=== PATIENT | female | born 1960 | race Caucasian/White ===

== ENCOUNTER 2017-01-20 05:10 | Day surgery (SDC) ==
[2017-01-20] MEDS ORDERED: LR 1,000 ML ONE (05:27)
[2017-01-20] MEDS ORDERED: PEPCID ONE (05:27)
[2017-01-20] MEDS ORDERED: REGLAN ONE (05:27)
[2017-01-20] MEDS ORDERED: KEFZOL 1 GM/D5W 50 ML ONE (05:27)
[2017-01-20] MEDS ORDERED: HEPARIN ONE (06:34)
[2017-01-20] MEDS ORDERED: XYLOCAINE 1%/EPI 1:100,000 ONE (06:34)
[2017-01-20] MEDS ORDERED: MARCAINE 0.25% PF/EPI 1:200,000 ONE (06:34)
[2017-01-20] MEDS ORDERED: NS 250 ML ONE (06:34)
[2017-01-20] MEDS: PHENERGAN ONE ×2 (08:04→08:17)
[2017-01-20] MEDS ORDERED: DIPRIVAN 1% ONE (08:05)
[2017-01-20] MEDS ORDERED: VERSED ONE (08:05)
[2017-01-20] MEDS ORDERED: DECADRON ONE (08:46)
[2017-01-20] MEDS ORDERED: ZOFRAN ONE (08:46)
[2017-01-20] MEDS ORDERED: XYLOCAINE-MPF 2% ONE (08:46)
--- NOTE | 2017-01-20 08:51 | Diag Imaging Result Document ---
PROCEDURE NAME: CHEST-PORTABLE - 01/20/2017 AP PORTABLE CHEST DATED 01/20/2017 AT 0820 HOURS: FINDINGS: There is a Port-A-Cath on the right with its tip in the superior vena cava. There is no evidence of acute cardiac or pulmonary disease and compared to 12/23/2016, otherwise there has been no significant change. IMPRESSION: Port-A-Cath on the right with its tip in the superior vena cava. No acute abnormality.
--- NOTE | 2017-01-20 08:59 | OPERATIVE NOTE ---
PROCEDURE DATE: 01/20/2017 PREOPERATIVE DIAGNOSIS: Breast cancer. POSTOPERATIVE DIAGNOSIS: Breast cancer. PROCEDURE PERFORMED: Insertion of Port-A-Cath with fluoroscopic and ultrasound guidance. SURGEON: Chris Arthur MD ANESTHESIA: General LMA. ESTIMATED BLOOD LOSS: 5 mL. COMPLICATIONS: None apparent. SPECIMENS: None. FINDINGS: The right internal jugular vein was visualized with the Site-Rite ultrasound and was compressible and patent, without thrombosis. The catheter was positioned to the junction of the superior vena cava and right atrium under fluoroscopic guidance. TECHNIQUE: She was brought to the operating room and placed supine on the table. General LMA anesthesia was induced. She was prepped and draped in usual sterile fashion. Marcaine 0.25% with epinephrine was used to anesthetize our incisions. An incision was made below the right clavicle with a knife and carried down through the subcutaneous tissue with cautery. A pocket was created anterior to the pectoral fascia with cautery and blunt finger dissection. The right internal jugular vein was visualized with the Site-Rite ultrasound. The skin over the vein was anesthetized with the Marcaine and an incision was made with an 11 blade in the skin. The vein was then accessed with 1 stick under ultrasound guidance. The wire passed through the needle into the vein. Initial fluoroscopy showed the tip of the wire going out into the subclavian vein. Under fluoroscopy, I pulled the wire back and redirected it down into the right atrium quite easily. I then fixed the wire to the drape with a hemostat. I anesthetized the subcutaneous tissues between the 2 incisions and tunneled the catheter subcutaneously from the lower incision out through the neck incision. The dilator and sheath were then passed over the wire under fluoroscopy. The wire and dilator were removed. The catheter was passed into the sheath. The sheath was removed. The tip of the catheter was positioned at the appropriate junction with fluoroscopy. The distal part of the catheter was cut to size and then fixed to the port. The port was anchored to the chest fascia with 2-0 Surgipro at 2 o'clock, 6 o'clock, and 10 o'clock. The port was accessed and melvin back blood easily. It was flushed with heparin saline. The incisions were closed with interrupted subcutaneous 3-0 Polysorb and running 4-0 subcuticular Monocryl and then Steri-Strips. There were no apparent complications. She was awakened in stable condition and transferred to the recovery room where a chest x-ray was ordered.
[2017-01-20 09:08] VITALS: BP 118/74
== END 2017-01-20 09:10 | disposition home or self-care (01) ==
LOC: OR 05:10
PROVIDERS: ATTEND Surgery
DX: C50.912 Malignant neoplasm of unspecified site of left female breast (principal)
CPT/HCPCS: 71010; 77001; C1788; J0690; J1100; J2250; J2405; J2550; J7050; J7120